=== PATIENT | female | born 2000 | race Caucasian/White ===

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

== ENCOUNTER 2021-01-02 20:08 | Emergency (ER) | payer MEDICAID ==
[~2021-01-02] VITALS: Ht 170.2 cm; Wt 68.2 kg
[~2021-01-02 20:08] MED LIST changes: +CLINDAMYCIN HC300 MG PO; +MUPIROCIN22 GM TOPICAL
[2021-01-02 20:41] VITALS: Ht 170.2 cm; Wt 68.2 kg
[2021-01-02 21:30] LABS: BASOPHILS 0.4 % (0-2); EOSINOPHILS 1.8 % (0-7); HEMATOCRIT 37.8 % (36.0-48.0); IMMATURE GRANULOCYTES 0.4 % (0-5); LYMPHOCYTE ABS# 2.91 10x3/uL (1.18-3.74); LYMPHOCYTES 37.1 % (15-50); MCHC 34.4 g/dL (31.0-37.0); MCV 90.2 fL (80.0-100.0); MEAN PLATELET VOLUME 9.4 fL (7.4-10.4); MONOCYTES 8.2 % (2-11); NEUTROPHILS 52.1 % (40-80); PLATELET COUNT 205 10x3/uL (130-400); RBC 4.19 10x6/uL (4.00-5.40); RDW 12.4 % (11.5-14.5); WBC 7.9 10x3/uL (4.8-10.8)
[2021-01-02 21:34] LABS: HCG URINE NEGATIVE (NEGATIVE)
[2021-01-02 21:37] LABS: CALC OSMOLALITY 274 mosm/kg (275-300); CALCIUM 8.3 mg/dL (8.5-10.1); CARBON DIOXIDE 26.7 mmol/L (21.0-32.0); CHLORIDE - SERUM 105 mmol/L (98-107); CREATININE - SERUM 0.8 mg/dL (0.6-1.3); GLUCOSE 90 mg/dL (74-106); POTASSIUM - SERUM 3.6 mmol/L (3.5-5.1); SODIUM 137 mmol/L (136-145); UREA NITROGEN 14 mg/dL (7-18); eGFR NON AFRICAN AMERICAN > 90 mL/min (90-120)
[2021-01-02 21:38] LABS: BILIRUBIN NEGATIVE (NEGATIVE); KETONE NEGATIVE (NEGATIVE); NITRITE NEGATIVE (NEGATIVE); UROBILINOGEN NORMAL mg/dL (< 2)
[2021-01-02 21:40] LABS: BACTERIA FEW HPF (NONE SEEN); SQUAMOUS EPITHELIAL 0-5 HPF (0-4); WHITE CELLS - URINE 0-5 HPF (0-4)
[2021-01-02 21:43] LABS: ALBUMIN 3.5 g/dL (3.4-5.0); ALKALINE PHOSPHATASE 54 U/L (30-120); ALT (SGPT) 25 U/L (10-68); AMYLASE - SERUM 28 U/L (25-115); BILIRUBIN - TOTAL 0.21 mg/dL (0.2-1.3); LIPASE 91 U/L (73-393); PROTEIN - SERUM 6.6 g/dL (6.4-8.2)
[2021-01-02] MEDS ORDERED: LEVSIN/ANASP0.125 MG PO (22:40)
[2021-01-02] MEDS ORDERED: REGLAN5 MG PO (22:40)
[2021-01-02] MEDS ORDERED: ZOFRAN ODT4 MG/UDTAB PO (22:40)
[2021-01-02] MEDS ORDERED: PEPCID AC20 MG PO (22:40)
[2021-01-02 23:07] VITALS: BP 112/73
== END 2021-01-02 23:19 | disposition home or self-care (01) ==
LOC: D.ER 20:08
PROVIDERS: Family Medicine
DX: R10.9 Unspecified abdominal pain (principal); R11.2 Nausea with vomiting, unspecified; R19.7 Diarrhea, unspecified